=== PATIENT | male | born 1950 | race Caucasian/White ===

== ENCOUNTER 2024-04-13 05:10 | Day surgery (SDC) | payer OTHER ==
[~2024-04-13 05:10] MED LIST: ATENOLOL25 MG PO; ATORVASTATIN CA10 MG PO; LOSARTAN POTASS25 MG PO
[2024-04-13] MEDS ORDERED: BUPIVACAINE HCL 30 ML VIAL IJ SCH (08:45)
[2024-04-13] MEDS ORDERED: IOHEXOL 240 mgI/ML 100ML BOTT IV SCH (08:45)
[2024-04-13] MEDS ORDERED: DEXAMETHASONE SODIUM PHOSPHATE 4 MG/ML VIAL IJ SCH (08:45)
== END 2024-04-13 11:45 | disposition home or self-care (01) ==
LOC: CIR.AMB 05:10
PROVIDERS: ATTEND Anesthesiology Pain Medicine
DX: M99.53 Intervertebral disc stenosis of neural canal of lumbar region (principal); Z88.2 Allergy status to sulfonamides